=== PATIENT | male | born 1980 | race Hispanic/Latino ===

== ENCOUNTER 2017-04-01 20:22 | Emergency (ER) | payer SELFPAY ==
[2017-04-01 20:51] LABS: #Eosinphils 0.2 thou/uL (0.0-0.7); #Lymphocytes 3.3 thou/uL (1.20-3.40); #Monocytes 0.6 thou/uL (0.11-0.59); #Neutrophils 6.8 thou/uL (1.40-6.50); %Basophils 0.1 % (0.0-1.0); %Eosinophils 1.9 % (0.0-10.0); %Lymphocytes 30.3 % (21.0-51.0); %Monocytes 5.8 % (0.0-10.0); Hematocrit 45.8 % (42.0-52.0); Mean Platelet Volume 8.1 fL (7.4-10.4); Red Blood Cell (RBC) Count 5.12 mill/uL (4.70-6.10)
--- NOTE | 2017-04-01 21:10 | RAD ---
CHEST ONE VIEW 04/01/17 HISTORY: Hypertension. COMPARISON: None. FINDINGS: Portable upright chest: Normal cardiac silhouette. Lungs and pleural spaces are clear. No pneumothorax or osseous abnormality . IMPRESSION: No acute cardiopulmonary process. POS: [facility]
[2017-04-01 21:11] LABS: ALT (SGPT) 27 U/L (8-55); AST (SGOT) 23 U/L (5-34); Alkaline Phosphatase 143 U/L (40-150); Anion Gap 16 mmol/L (10-20); BUN (Urea Nitrogen) 16 mg/dL (8.9-20.6); CK (CPK) 114 U/L (30-200); Calc. Creatinine Clearance 0 mL/min (70-130); Calcium 9.5 mg/dL (7.8-10.44); Carbon Dioxide 24 mmol/L (22-29); Chloride 100 mmol/L (98-107); Estimated GFR-MDRD 67; Protein, Total 8.5 g/dL (6.0-8.3)
[2017-04-01 21:12] LABS: Troponin I Less than 0.010 ng/mL (< 0.028)
[2017-04-01] MEDS ORDERED: cloNIDine 0.1 MG TAB ONE (21:37)
[2017-04-01] MEDS ORDERED: Furosemide 20 MG/2 ML VIAL ONE (21:39)
== END 2017-04-01 23:04 | disposition home or self-care (01) ==
LOC: ERS 20:22
DX: I10 Essential (primary) hypertension (principal); M10.9 Gout, unspecified; Z87.891 Personal history of nicotine dependence
CPT/HCPCS: 71010; 80053; 82553; 84484; 85025; 93005; 94760; 96374; J1940

== ENCOUNTER 2018-08-29 23:42 | Observation (INO) | payer SELFPAY ==
[2018-08-30 00:30] LABS: #Eosinphils 0.1 thou/uL (0.0-0.7); #Lymphocytes 3.2 thou/uL (1.20-3.40); #Monocytes 0.6 thou/uL (0.11-0.59); #Neutrophils 5.8 thou/uL (1.40-6.50); %Basophils 0.3 % (0.0-1.0); %Eosinophils 1.5 % (0.0-10.0); %Lymphocytes 32.8 % (21.0-51.0); %Monocytes 6.1 % (0.0-10.0); %Neutrophils 59.4 % (42.0-75.0); Hemoglobin 12.1 g/dL (14.0-18.0); Mean Corpuscular HGB CONC 34.3 g/dL (32.0-36.0); Mean Corpuscular Hemoglobin 30.1 pg (27.0-31.0); Mean Corpuscular Volume 87.7 fL (78.0-98.0); Mean Platelet Volume 8.5 fL (7.4-10.4); Platelet Count 331 thou/uL (130-400); RBC Distribution Width 11.8 % (11.5-14.5); Red Blood Cell (RBC) Count 4.03 mill/uL (4.70-6.10); White Blood Cell (WBC) Count 9.7 thou/uL (4.8-10.8)
[2018-08-30 00:50] LABS: ALT (SGPT) 20 U/L (8-55); AST (SGOT) 14 U/L (5-34); Albumin 4.6 g/dL (3.5-5.0); Alkaline Phosphatase 109 U/L (40-150); Anion Gap 13 mmol/L (10-20); BUN (Urea Nitrogen) 49 mg/dL (8.9-20.6); Bilirubin, Total 0.5 mg/dL (0.2-1.2); Calc. Creatinine Clearance 0 mL/min (70-130); Carbon Dioxide 26 mmol/L (22-29); Chloride 102 mmol/L (98-107); Estimated GFR-MDRD 39; Globulin 3.5 g/dL (2.4-3.5); Glucose 110 mg/dL (70-105); Magnesium 2.2 mg/dL (1.6-2.6); Potassium 3.6 mmol/L (3.5-5.1); Protein, Total 8.1 g/dL (6.0-8.3); Sodium 137 mmol/L (136-145)
[2018-08-30 01:12] LABS: CKMB 1.1 ng/mL (0-6.6)
[2018-08-30] MEDS ORDERED: Aspirin Chewable 81 MG TAB ONE (02:44)
[2018-08-30 03:01] LABS: Troponin I 0.071 ng/mL (< 0.028)
[2018-08-30 04:07] LABS: Troponin I 0.074 ng/mL (< 0.028)
[2018-08-30 07:27] LABS: Troponin I 0.071 ng/mL (< 0.028)
--- NOTE | 2018-08-30 07:35 | RAD ---
Chest one view HISTORY: Chest pain. COMPARISON: 08/13/2018. FINDINGS: Cardiac silhouette is magnified by projection. Pulmonary vasculature within normal limits. Mediastinum is midline. No lobar consolidation or evidence of pneumothorax. quality assurance monitor chassis leads overlie the chest. IMPRESSION: No active cardiopulmonary abnormalities are demonstrated.
[2018-08-30] MEDS ORDERED: Carvedilol 3.125 MG TAB PO SCH (08:00)
[2018-08-30] MEDS ORDERED: metFORMIN XR 500 MG TAB PO SCH (08:00)
[2018-08-30] MEDS ORDERED: Clopidogrel Bisulfate 75 MG TAB PO SCH (09:00)
[2018-08-30] MEDS ORDERED: Aspirin Chewable 81 MG TAB PO SCH (09:00)
[2018-08-30] MEDS ORDERED: Losartan 25 MG TAB PO SCH (09:00)
[2018-08-30] MEDS ORDERED: Atorvastatin Calcium 10 MG TAB PO SCH (21:00)
--- NOTE | 2018-08-31 08:02 | SS ---
DATE OF ADMISSION: 08/30/2018 DATE OF DISCHARGE: 08/30/2018 ADMISSION DIAGNOSES: 1. Abdominal bloating. 2. Elevated cardiac enzymes. DISCHARGE DIAGNOSES: 1. Abdominal bloating, resolved. 2. Cardiac enzymes, stable. Other diagnoses; 1. Coronary artery disease, status post ST depression myocardial infarction, status post stent placement. 2. Type 2 diabetes. 3. Hyperlipidemia. 4. Acute kidney injury. CONSULTATIONS: None. PROCEDURES: Rule out DC protocol, IV fluid rehydration. HOSPITAL COURSE: This is a 38-year-old gentleman with a recent admission for myocardial infarction, status post bare metal stent placement to the right coronary artery for three-vessel coronary artery disease, who presented to the emergency department last night after being at the movie theater and developing abdominal bloating. The patient states that he was in his usual state of health, was recently seen and followed by myself and Cardiology. He has plans to follow up with Cardiovascular Surgery later this month when he develops abdominal bloating. The patient states that he took his medicine right before the movie, which he usually does not take at this time. He did not eat anything new. He denied nausea or vomiting, denied diarrhea, but felt gassy and was passing a lot of gas en route to the Emergency Department and in the Emergency Department. This helped improve his bloating. When he noticed the abdominal discomfort, he looked at his apple watch, revealed a heart rate in the 50s to 60s. He became panicked and he and his left the movie theater. In the panic, his heart rate got up to 120, which concerned him even more, and he went straight to the Emergency Department for evaluation. In the Emergency Department, he had no changes on his EKG, did note indeterminate level of troponin, but much lower than when he had his DC, initially 0.082, as well as worsening of his kidney function. Due to his sudden onset of his symptoms and the abnormality of his labs, he was admitted for overnight observation to trend his cardiac enzymes, to monitor his symptoms, and to give him IV fluid rehydration. Overnight, he improved significantly as his abdominal bloating resolved. His cardiac enzymes continued to decline with no significant change, and he felt much better and stable for discharge home. PAST MEDICAL HISTORY: Again, three-vessel coronary artery disease status post bare metal stent placement, type 2 diabetes, history of gout, hypertension, hyperlipidemia, obesity. MEDICATIONS: Include: 1. Aspirin 81 mg daily. 2. Atorvastatin 10 mg daily. 3. Carvedilol 3.125 mg b.i.d. 4. Plavix 75 mg daily. 5. Glucotrol 2.5 mg daily. 6. Hyzaar 100/25 daily. 7. Metformin 500 mg daily. PAST SURGICAL HISTORY: Cardiac catheterization with stent placement in 2019. FAMILY HISTORY: Father with hypertension. Mother with hyperlipidemia. REVIEW OF SYSTEMS: As per the history of present illness. CONSTITUTIONAL: He denies any recent fevers, chills, or recent illness. HEENT: Denies headache, visual, or hearing changes. CARDIAC: Denies chest pain, shortness of breath, or palpitations. PULMONARY: Denies cough or hemoptysis. GI: As per the history of present illness. No nausea, vomiting, diarrhea, melena, or hematochezia. : Denies dysuria or hematuria. NEUROLOGIC: Denies weakness, seizure, or syncope. PHYSICAL EXAMINATION: VITAL SIGNS: Temperature 99.0; pulse last night was up to 115, this morning is down to 85; respirations 16; blood pressure 126/97; pulse ox 100% on room air. GENERAL: He is awake and alert. No acute distress. Speech is clear. NECK: Supple. No JVD, adenopathy, or bruits. HEART: Regular rate and rhythm with no murmurs. LUNGS: Clear bilaterally. ABDOMEN: With positive bowel sounds. Soft, nontender, and nondistended. No hepatosplenomegaly. EXTREMITIES: No clubbing, cyanosis, or edema. 2+ peripheral pulses bilaterally. LABORATORY DATA: Sodium 137, potassium 3.6, chloride 102, CO2 of 26, BUN and creatinine 49 and 1.92, with a GFR of 39, serum glucose of 110, calcium of 10, magnesium 2.2. AST and ALT are normal. Troponin I 0.082, 0.071, 0.074, 0.071. TSH was slightly elevated at 6.4 with a T4 of 1.08. EKG revealed normal sinus rhythm with no acute ST-T changes. Chest x-ray showed no active disease. ASSESSMENT: This is a 38-year-old gentleman with type 2 diabetes, hypertension, hyperlipidemia, known three-vessel coronary artery disease status post stent placement, now status post episode of abdominal bloating followed by anxiety. No evidence of cardiac ischemia. No signs of myocardial infarction. PLAN: We will discharge home with close followup. Continue followup with Cardiovascular Surgery. DISCHARGE MEDICATIONS: Include: 1. Aspirin 81 mg daily. 2. Atorvastatin 10 mg daily. 3. Carvedilol 3.125 mg b.i.d. 4. Plavix 75 mg daily. 5. Glucotrol 2.5 mg daily. 6. Losartan 100 mg daily as we will discontinue the hydrochlorothiazide. 7. Metformin 500 mg daily. FOLLOWUP INSTRUCTIONS: He will keep his followups. Follow up with me in 2 to 3 weeks. Continue Cardiology and Cardiovascular Surgery followup as well as cardiac rehab. Job ID: [id number]
--- NOTE | 2018-09-11 13:33 | EKG ---
Test Reason : Blood Pressure : / mmHG Vent. Rate : 093 BPM Atrial Rate : 093 BPM P-R Int : 170 ms QRS Dur : 092 ms QT Int : 374 ms P-R-T Axes : 019 -04 015 degrees QTc Int : 465 ms Normal sinus rhythm Normal ECG Confirmed by TRACY ELLIS ([id number]), art editor MIKE SHAH ([id number]) on 09/11/2018 1:32:34 PM Referred By: Confirmed By:TRACY ELLIS
== END 2018-08-30 09:32 | disposition home or self-care (01) ==
LOC: ERS 23:42 → MERGE 08-30 03:15 → ERHOLD 08-30 03:15
PROVIDERS: ADMIT Family Medicine; ATTEND Family Medicine
DX: R14.0 Abdominal distension (gaseous) (principal); I25.10 Atherosclerotic heart disease of native coronary artery without angina pectoris; I25.2 Old myocardial infarction; E11.9 Type 2 diabetes mellitus without complications; E78.5 Hyperlipidemia, unspecified; N17.9 Acute kidney failure, unspecified; M10.9 Gout, unspecified; F41.9 Anxiety disorder, unspecified; Z87.891 Personal history of nicotine dependence; Z79.82 Long term (current) use of aspirin; Z79.02 Long term (current) use of antithrombotics/antiplatelets; Z79.84 Long term (current) use of oral hypoglycemic drugs; Z79.899 Other long term (current) drug therapy; Z95.5 Presence of coronary angioplasty implant and graft
CPT/HCPCS: 36415; 71045; 80053; 82553; 83735; 84439; 84443; 84484; 85025; 93005; 96360; 96361; G0378

== ENCOUNTER 2018-09-22 15:01 | Emergency (ER) | payer SELFPAY ==
[2018-09-22 15:57] LABS: #Eosinphils 0.2 thou/uL (0.0-0.7); #Lymphocytes 1.8 thou/uL (1.20-3.40); #Monocytes 0.5 thou/uL (0.11-0.59); %Basophils 0.1 % (0.0-1.0); %Eosinophils 1.9 % (0.0-10.0); %Lymphocytes 21.7 % (21.0-51.0); %Monocytes 5.9 % (0.0-10.0); %Neutrophils 70.5 % (42.0-75.0); Hemoglobin 12.2 g/dL (14.0-18.0); Mean Corpuscular HGB CONC 34.4 g/dL (32.0-36.0); Mean Corpuscular Hemoglobin 31.1 pg (27.0-31.0); Mean Corpuscular Volume 90.4 fL (78.0-98.0); Mean Platelet Volume 8.3 fL (7.4-10.4); Platelet Count 330 thou/uL (130-400); RBC Distribution Width 13.1 % (11.5-14.5); Red Blood Cell (RBC) Count 3.94 mill/uL (4.70-6.10); White Blood Cell (WBC) Count 8.5 thou/uL (4.8-10.8)
--- NOTE | 2018-09-22 15:59 | RAD ---
Exam: Chest one view HISTORY:Chest pain Comparison: 08/30/2018 FINDINGS: Cardiac silhouette: Normal Pulmonary vessels: Normal Costophrenic angles: Clear LUNGS: No masses or consolidation. Pneumothorax: None Osseous abnormalities: None IMPRESSION: No acute cardiopulmonary process.
[2018-09-22 16:18] LABS: ALT (SGPT) 25 U/L (8-55); AST (SGOT) 17 U/L (5-34); Albumin 4.7 g/dL (3.5-5.0); Alkaline Phosphatase 141 U/L (40-150); Anion Gap 15 mmol/L (10-20); BUN (Urea Nitrogen) 25 mg/dL (8.9-20.6); Bilirubin, Total 1.1 mg/dL (0.2-1.2); CK (CPK) 78 U/L (30-200); Calc. Creatinine Clearance 0 mL/min (70-130); Calcium 9.8 mg/dL (7.8-10.44); Carbon Dioxide 21 mmol/L (22-29); Chloride 104 mmol/L (98-107); Estimated GFR-MDRD 61; Globulin 2.9 g/dL (2.4-3.5); Glucose 158 mg/dL (70-105); Potassium 3.6 mmol/L (3.5-5.1); Protein, Total 7.6 g/dL (6.0-8.3); Sodium 136 mmol/L (136-145)
== END 2018-09-22 20:08 | disposition home or self-care (01) ==
LOC: ERS 15:01
DX: R07.9 Chest pain, unspecified (principal); I10 Essential (primary) hypertension; M10.9 Gout, unspecified; I25.2 Old myocardial infarction; E11.9 Type 2 diabetes mellitus without complications; E78.5 Hyperlipidemia, unspecified; Z87.891 Personal history of nicotine dependence; Z79.899 Other long term (current) drug therapy; Z79.84 Long term (current) use of oral hypoglycemic drugs
CPT/HCPCS: 36415; 71045; 80053; 82550; 83880; 84484; 85025; 85379; 93005

== ENCOUNTER 2019-07-12 20:58 | Emergency (ER) | payer SELFPAY ==
[2019-07-12] MEDS ORDERED: Ondansetron PF 4 MG/2 ML Vial ONE (21:47)
[2019-07-12] MEDS ORDERED: Meclizine HCl 25 MG TAB ONE (21:47)
[2019-07-12 21:57] LABS: #Eosinphils 0.2 thou/uL (0.0-0.7); #Lymphocytes 2.3 thou/uL (1.20-3.40); #Monocytes 0.7 thou/uL (0.11-0.59); #Neutrophils 8.7 thou/uL (1.40-6.50); %Basophils 0.4 % (0.0-1.0); %Eosinophils 1.6 % (0.0-10.0); %Lymphocytes 19.5 % (21.0-51.0); %Monocytes 5.5 % (0.0-10.0); %Neutrophils 73.1 % (42.0-75.0); Hemoglobin 12.4 g/dL (14.0-18.0); Mean Corpuscular HGB CONC 35.1 g/dL (32.0-36.0); Mean Corpuscular Hemoglobin 33.3 pg (27.0-31.0); Mean Corpuscular Volume 94.8 fL (78.0-98.0); Mean Platelet Volume 8.6 fL (7.4-10.4); Platelet Count 249 thou/uL (130-400); RBC Distribution Width 12.3 % (11.5-14.5); Red Blood Cell (RBC) Count 3.72 mill/uL (4.70-6.10); White Blood Cell (WBC) Count 11.9 thou/uL (4.8-10.8)
--- NOTE | 2019-07-12 21:57 | RAD ---
Portable chest: HISTORY: Syncope COMPARISON: 09/22/2018 FINDINGS: Lung dennis are clear. Heart and mediastinum appear unremarkable. Vascularity is normal. Visualized osseous structures unremarkable. IMPRESSION: No acute finding
[2019-07-12 22:16] LABS: ALT (SGPT) 29 U/L (8-55); AST (SGOT) 21 U/L (5-34); Albumin 4.5 g/dL (3.5-5.0); Alkaline Phosphatase 129 U/L (40-110); Anion Gap 14 mmol/L (10-20); BUN (Urea Nitrogen) 29 mg/dL (8.9-20.6); Bilirubin, Total 0.8 mg/dL (0.2-1.2); Calc. Creatinine Clearance 0 mL/min (70-130); Calcium 9.1 mg/dL (7.8-10.44); Carbon Dioxide 24 mmol/L (22-29); Chloride 105 mmol/L (98-107); Estimated GFR-MDRD 65; Globulin 2.7 g/dL (2.4-3.5); Glucose 125 mg/dL (70-105); Potassium 3.7 mmol/L (3.5-5.1); Protein, Total 7.2 g/dL (6.0-8.3); Sodium 139 mmol/L (136-145)
== END 2019-07-12 23:46 | disposition home or self-care (01) ==
LOC: ERS 20:58
DX: R42 Dizziness and giddiness (principal); M10.9 Gout, unspecified; E11.9 Type 2 diabetes mellitus without complications; I10 Essential (primary) hypertension; E78.5 Hyperlipidemia, unspecified; I25.2 Old myocardial infarction; Z87.891 Personal history of nicotine dependence; Z79.891 Long term (current) use of opiate analgesic; Z79.82 Long term (current) use of aspirin; Z79.84 Long term (current) use of oral hypoglycemic drugs
CPT/HCPCS: 36415; 71045; 80053; 84484; 85025; 93005; 96374; J2405; J8597

== ENCOUNTER 2020-01-27 11:39 | Observation (INO) | payer OTHER, SELFPAY ==
--- NOTE | 2020-01-27 11:58 | RAD ---
EXAM: Single view of the chest HISTORY: Chest pain COMPARISON: 07/12/2019 FINDINGS: Single view of the chest shows a normal sized cardiomediastinal silhouette. There is no michael dence of consolidation, mass, or pleural effusion. No acute osseous abnormality. IMPRESSION: No evidence of acute cardiopulmonary disease
[2020-01-27 13:02] LABS: #Lymphocytes 1.7 thou/uL (1.20-3.40); #Monocytes 0.5 thou/uL (0.11-0.59); #Neutrophils 5.8 thou/uL (1.40-6.50); %Basophils 0.3 % (0.0-1.0); %Eosinophils 0.1 % (0.0-10.0); %Lymphocytes 21.3 % (21.0-51.0); %Monocytes 5.7 % (0.0-10.0); %Neutrophils 72.7 % (42.0-75.0); Hemoglobin 14.5 g/dL (14.0-18.0); Mean Corpuscular HGB CONC 34.9 g/dL (32.0-36.0); Mean Corpuscular Hemoglobin 32.5 pg (27.0-31.0); Mean Corpuscular Volume 93.1 fL (78.0-98.0); Mean Platelet Volume 10.2 fL (7.4-10.4); Platelet Count 268 thou/uL (130-400); RBC Distribution Width 12.1 % (11.5-14.5); Red Blood Cell (RBC) Count 4.46 mill/uL (4.70-6.10)
[2020-01-27 13:33] LABS: ALT (SGPT) 24 U/L (8-55); AST (SGOT) 37 U/L (5-34); Albumin 4.8 g/dL (3.5-5.0); Alkaline Phosphatase 145 U/L (40-110); Anion Gap 15 mmol/L (10-20); BUN (Urea Nitrogen) 28 mg/dL (8.9-20.6); Bilirubin, Total 0.7 mg/dL (0.2-1.2); Calc. Creatinine Clearance 0 mL/min (70-130); Calcium 9.5 mg/dL (7.8-10.44); Carbon Dioxide 23 mmol/L (22-29); Chloride 104 mmol/L (98-107); Estimated GFR-MDRD 61; Globulin 3.8 g/dL (2.4-3.5); Glucose 105 mg/dL (70-105); Potassium 5.2 mmol/L (3.5-5.1); Protein, Total 8.6 g/dL (6.0-8.3); Sodium 137 mmol/L (136-145)
[2020-01-27] MEDS ORDERED: Aspirin Chewable 81 MG TAB ONE (16:07)
[2020-01-27 16:58] LABS: Troponin I Less than 0.010 ng/mL (< 0.028)
[2020-01-27 18:11] VITALS: BMI 29.6
[2020-01-27 19:14] LABS: Troponin I Less than 0.010 ng/mL (< 0.028)
[2020-01-27] MEDS ORDERED: Ondansetron ODT 4 MG TAB SL PRN (19:15)
[2020-01-27] MEDS ORDERED: Ondansetron PF 4 MG/2 ML Vial IVP PRN (19:15)
[2020-01-27] MEDS ORDERED: Acetaminophen 325 MG TAB PO PRN (19:15)
--- NOTE | 2020-01-27 20:41 | PDOC.HHP ---
Hospitalist HPI - History of Present Illness chest pressure History of Present Illness: This is a 39 year old male with past medical history of CAD who presented to the ER with some chest pressure that started at 11:30 this morning. He was sitting down when the pain happened. He stated it was not sharp, non-radiating, not associated with shortness of breath, diaphoresis, palpitations, lightheadedness or dizziness. He denied chest pressure on exertion. When he checked his blood pressure it was 160/100. He rechecked it and it improved to 139/86 but after five more minutes it increased to 160/100 so he came to the emergency room. The patient states that after his EKG was done and he was told it was normal, his chest pressure resolved. The patient has a history of CAD with two stents placed last year. He states that time he experienced an intense pain in his throat and his shoulders were aching. His heart rate was low and an EKG at his PCP's office was abnormal and he was sent to the ER and found to have CAD. He does not smoke currently, and was never a heavy smoker (only when he drank alcohol). He denies family history of heart disease. He denies fevers, chills, cough ED Course: The patient presented to the ER with a blood pressure of 171/108. Chest Xray was normal. EKG showed normal sinus rhythm. He was given aspirin in the ER. Hospitalist ROS - Review of Systems Constitutional: denies: fever, chills Eyes: denies: pain, vision change Respiratory: denies: cough, shortness of breath Cardiovascular: denies: chest pain, palpitations, orthopnea Gastrointestinal: denies: nausea, vomiting, abdominal pain Musculoskeletal: denies: neck pain, shoulder pain, arm pain Skin: denies: rash, lesions Hospitalist History - Past Medical History Other Medical History: CAD Hypertension - Past Surgical History Other Surgical History: Stent placement - Family History Other Family History: No problems in the family - Social History Smoking Status: Former smoker (smoked occasionally once a week with alcohol. Quit 2 years ago) Alcohol: reports: None (stopped alcohol two years ago. Used to drink once a week) - Exam General Appearance: NAD, awake alert Eye: PERRL, anicteric sclera ENT: normocephalic atraumatic, no oropharyngeal lesions Neck: no JVD Heart: RRR, no murmur, no gallops, no rubs Respiratory: CTAB, no wheezes, no rales, no ronchi Gastrointestinal: soft, non-tender, non-distended, normal bowel sounds Extremities: no cyanosis, no clubbing, no edema Skin: normal turgor, no lesions, no rashes Neurological: cranial nerve grossly intact, normal sensation to touch, no focal deficits, no new deficit Musculoskeletal: normal tone, normal strength, no muscle wasting Psychiatric: normal affect, normal behavior, A&O x 3, oriented to person Hospitalist Results - Labs Result Diagrams: 01/27/20 12:39 01/27/20 12:39 Lab results: WBC 8.0 thou/uL (4.8-10.8) 01/27/20 12:39 Hgb 14.5 g/dL (14.0-18.0) 01/27/20 12:39 Hct 41.5 % (42.0-52.0) L 01/27/20 12:39 MCV 93.1 fL (78.0-98.0) 01/27/20 12:39 Plt Count 268 thou/uL (130-400) 01/27/20 12:39 Neutrophils % 72.7 % (42.0-75.0) 01/27/20 12:39 Sodium 137 mmol/L (136-145) 01/27/20 12:39 Potassium 5.2 mmol/L (3.5-5.1) H 01/27/20 12:39 Chloride 104 mmol/L (98-107) 01/27/20 12:39 Carbon Dioxide 23 mmol/L (22-29) 01/27/20 12:39 BUN 28 mg/dL (8.9-20.6) H 01/27/20 12:39 Creatinine 1.31 mg/dL (0.7-1.3) H 01/27/20 12:39 Glucose 105 mg/dL (70-105) 01/27/20 12:39 Calcium 9.5 mg/dL (7.8-10.44) 01/27/20 12:39 Total Bilirubin 0.7 mg/dL (0.2-1.2) 01/27/20 12:39 AST 37 U/L (5-34) H 01/27/20 12:39 ALT 24 U/L (8-55) 01/27/20 12:39 Alkaline Phosphatase 145 U/L (40-110) H 01/27/20 12:39 Troponin I Less than 0.010 ng/mL (< 0.028) 01/27/20 18:39 Serum Total Protein 8.6 g/dL (6.0-8.3) H 01/27/20 12:39 Albumin 4.8 g/dL (3.5-5.0) 01/27/20 12:39 Hospitalist H&P A/P - Plan Plan: This is a 39 year old male who presented to the ER with chest pressure, was found to have hypertensive urgency Chest pressure - likely secondary to hypertensive urgency vs anxiety - troponin negative times three. Continue aspirin, statin - will monitor on telemetry - check stress test in am - follows with Dr. Tejada as an outpatient Hypertension - resume home coreg 3.125 mg bid, titrate as tolerated Hyperkalemia - potassium 5.2, will give kayexelate and recheck after bowel movement CAD -continue aspirin, statin Gout - continue allopurinol DVT prophylaxis: SCD Code status: full code
[2020-01-27] MEDS: Aspirin Chewable 81 MG TAB PO SCH (22:01)
[2020-01-27] MEDS: Atorvastatin Calcium 10 MG TAB PO SCH (22:01)
[2020-01-27] MEDS: Allopurinol 300 MG TAB PO SCH (22:01)
[2020-01-27 22:40] LABS: Potassium 3.6 mmol/L (3.5-5.1)
[2020-01-28 05:37] LABS: Anion Gap 14 mmol/L (10-20); BUN (Urea Nitrogen) 25 mg/dL (8.9-20.6); Calc. Creatinine Clearance 118 mL/min (70-130); Calcium 8.9 mg/dL (7.8-10.44); Carbon Dioxide 24 mmol/L (22-29); Cardiac Risk 3.1 (Less than 4.5); Chloride 106 mmol/L (98-107); Cholesterol 110 mg/dl (< 200 Desired); Estimated GFR-MDRD 82; Glucose 92 mg/dL (70-105); HDL Cholesterol 36 mg/dL (>60 Neg Risk); LDL Cholesterol, Calculated 55 mg/dL; Potassium 3.5 mmol/L (3.5-5.1); Sodium 140 mmol/L (136-145); Triglycerides 93 mg/dL (Less than 150)
[2020-01-28 12:09] LABS: SARS-CoV-2 MS2 Positive; SARS-CoV-2 N Gene Negative; SARS-CoV-2 S Gene Negative; SARS-CoV-2 by NAA Not Detected (NotDetected); SARS-CoV-2 orf1ab Negative
[2020-01-28] MEDS: Carvedilol 3.125 MG TAB PO SCH ×2 (13:50→18:12)
--- NOTE | 2020-01-28 15:56 | NM ---
MYOCARDIAL PERFUSION SCAN WITH SPECT IMAGIN01/28/20 HISTORY: Chest pain. Examination is performed using 30 millicuries of 99m technetium Sestamibi on the stress and 9.1 valerio curies on the resting images. This shows a defect in the inferior and inferolateral costa extending into the apex. On the resting i mages, there appears to be some improved perfusion to the apical region suggesting some ischemic flores ge in this region. Wall motion: There is symmetric contractility to the ventricle. Left ventricular ejection fraction: Calculated left ventricular ejection fraction is 49%. IMPRESSION: Inferior and inferolateral wall scar with some ischemic change in the apex o the heart. POS: OFF
[2020-01-28] MEDS ORDERED: Nitroglycerin 0.4 MG TAB (25 Tab Bottle) SL PRN (16:00)
--- NOTE | 2020-01-28 16:06 | PDOC.HOSPP ---
- Subjective Encounter Date: 01/28/20 Encounter Time: 11:04 Subjective: Patient states he feels well and is without any complaints. Denies any chest pain at all and states what brought him in was his blood pressure which was fluctuating at home. He reports "feeling weird all day yesterday" which is what prompted him to check his blood pressure. Denies any sob. States his symptoms resolved and he feels back to his normal baseline. - Objective Vital Signs & Weight: Vital Signs (12 hours) Temp Pulse Resp BP Pulse Ox 01/28/20 13:50 98 F 81 20 150/91 H 99 01/28/20 07:46 97.7 F 71 20 130/78 97 Weight Weight 189 lb 6.4 oz I&O: 01/27/20 01/28/20 01/29/20 06:59 06:59 06:59 Intake Total 750 360 Balance 750 360 Result Diagrams: 01/27/20 12:39 01/28/20 04:37 Hospitalist ROS - Review of Systems Constitutional: denies: fever, chills, sweats, weakness, malaise, other Eyes: denies: pain, vision change, conjunctivae inflammation, eyelid inflammation, redness, other Cardiovascular: denies: chest pain, palpitations, orthopnea, paroxysmal noc. dyspnea, edema, light headedness, other Gastrointestinal: denies: nausea, vomiting, abdominal pain, diarrhea, constipation, melena, hematochezia, other Genitourinary: denies: dysuria, frequency, incontinence, hematuria, retention, other Neurological: denies: weakness, numbness, incoordination, change in speech, confusion, seizures, other - Medication Medications: Active Medications Generic Name Dose Route Start Last Admin Trade Name Freq PRN Reason Stop Dose Admin Allopurinol 300 mg 01/27/20 21:00 01/27/20 22:01 Allopurinol 300 Mg Tab PO 300 mg HS AMG Administration Aspirin 81 mg 01/27/20 21:00 01/27/20 22:01 Aspirin Chewable 81 Mg Tab PO 81 mg HS MAG Administration Atorvastatin Calcium 10 mg 01/27/20 21:00 01/27/20 22:01 Atorvastatin Calcium 10 Mg Tab PO 10 mg HS MAG Administration Carvedilol 3.125 mg 01/28/20 08:00 01/28/20 13:50 Carvedilol 3.125 Mg Tab PO 3.125 mg BID-WM MAG Administration - Exam General Appearance: NAD, awake alert Eye: PERRL, anicteric sclera ENT: normocephalic atraumatic, no oropharyngeal lesions Neck: supple, symmetric, no lymphadenopathy Heart: RRR, no murmur, no gallops, normal peripheral pulses Respiratory: CTAB, no wheezes, no rales, no ronchi, normal chest expansion, no tachypnea Gastrointestinal: soft, non-tender, non-distended, normal bowel sounds, no guarding, no rigidity Extremities: no edema Skin: normal turgor, no lesions, no rashes Neurological: cranial nerve grossly intact, normal sensation to touch, no weakness, no focal deficits Musculoskeletal: normal tone, normal strength, no muscle wasting Psychiatric: normal affect, normal behavior, A&O x 3 Hosp A/P (1) Chest pressure Code(s): R07.89 - OTHER CHEST PAIN Status: Acute Plan: Troponins trended and unremarkable. Stress test pending. Continue cardiac monitoring. (2) Hypertension Code(s): I10 - ESSENTIAL (PRIMARY) HYPERTENSION Status: Chronic Plan: Monitor BP. Home medications re-started. (3) Hyperkalemia Code(s): E87.5 - HYPERKALEMIA Status: Resolved Plan: Improved with kayexelate. Continue to monitor electrolytes. (4) CAD (coronary artery disease) Code(s): I25.10 - ATHSCL HEART DISEASE OF [place] CORONARY ARTERY W/O ANG PCTRS Status: Chronic Plan: Continue aspirin and statin. (5) History of coronary artery stent placement Code(s): Z95.5 - PRESENCE OF CORONARY ANGIOPLASTY IMPLANT AND GRAFT Status: Chronic (6) Gout Code(s): M10.9 - GOUT, UNSPECIFIED Status: Chronic Plan: Continue allopurinol - Plan old records reviewed/req, out of bed/ambulate ADDENDUM: Stress test has come back abnormal. Inferior and inferolateral wall scar with some ischemic change in the apex noted. Consult placed to Cardiology, for possible catherization. Unlikely to be done until Thursday. Would need to be NPO starting midnight Thursday. Awaiting cardiology review/recommendations.
[2020-01-28] MEDS: Aspirin Chewable 81 MG TAB PO SCH (20:32)
[2020-01-28] MEDS: Allopurinol 300 MG TAB PO SCH (20:32)
[2020-01-28] MEDS: Atorvastatin Calcium 10 MG TAB PO SCH (20:32)
[2020-01-29 05:34] LABS: #Lymphocytes 2.3 thou/uL (1.20-3.40); #Monocytes 0.6 thou/uL (0.11-0.59); #Neutrophils 6.1 thou/uL (1.40-6.50); %Basophils 0.4 % (0.0-1.0); %Eosinophils 0.2 % (0.0-10.0); %Lymphocytes 25.2 % (21.0-51.0); %Monocytes 6.5 % (0.0-10.0); %Neutrophils 67.7 % (42.0-75.0); Hemoglobin 13.2 g/dL (14.0-18.0); Mean Corpuscular HGB CONC 35.7 g/dL (32.0-36.0); Mean Corpuscular Hemoglobin 33.5 pg (27.0-31.0); Mean Corpuscular Volume 93.9 fL (78.0-98.0); Mean Platelet Volume 8.9 fL (7.4-10.4); Platelet Count 232 thou/uL (130-400); Red Blood Cell (RBC) Count 3.92 mill/uL (4.70-6.10)
[2020-01-29 05:56] LABS: Anion Gap 12 mmol/L (10-20); BUN (Urea Nitrogen) 21 mg/dL (8.9-20.6); Calc. Creatinine Clearance 107 mL/min (70-130); Carbon Dioxide 27 mmol/L (22-29); Chloride 105 mmol/L (98-107); Estimated GFR-MDRD 73; Glucose 125 mg/dL (70-105); Potassium 3.4 mmol/L (3.5-5.1); Sodium 141 mmol/L (136-145)
[2020-01-29] MEDS: Carvedilol 3.125 MG TAB PO SCH ×2 (07:53→18:00)
[2020-01-29 13:42] VITALS: BP 149/93; TEMP 97.9
--- NOTE | 2020-01-29 13:59 | CON ---
DATE OF CONSULTATION: REASON FOR CONSULTATION: Hypertensive urgency and atypical chest pain. HISTORY OF PRESENT ILLNESS: Mr. Ott is a 39-year-old gentleman, who is a patient Dr. Fareed Tejada. He has a previous history of PA. He re-presented with hypertension. His blood pressure in the 170s. He states he felt off. No chest pain or pressure noted. No other symptoms noted. He presented to the emergency room with the above. EKG was within normal limits. The patient denied chest pain, pressure, or other associated symptoms. Reason for recent stress study is unknown. PAST MEDICAL HISTORY: diabetes mellitus, and hypertension. SOCIAL HISTORY: No current tobacco or alcohol use. Previous tobacco use. CURRENT HOME MEDICATIONS: Include; 1. Allopurinol. 2. Indomethacin. 3. Lipitor. 4. Aspirin. 5. Carvedilol. PHYSICAL EXAMINATION: GENERAL: The patient is a pleasant male, who is in no acute distress. The patient appears their stated age. VITAL SIGNS: Blood pressure 153/88, pulse 79, and temperature 98.3. NEUROLOGIC: The patient is alert and oriented x3 with no focal neurologic deficits. HEENT: Sclerae without icterus. Mouth has moist mucous membranes with normal pallor. NECK: No JVD. Carotid upstroke brisk. No bruits bilaterally. LUNGS: Clear to auscultation with unlabored respirations. BACK: No scoliosis or kyphosis. CARDIAC: Regular rate and rhythm with normal S1 and S2. No S3 or S4 noted. No significant rubs, murmurs, thrills, or gallops noted throughout the precordium. PMI is not displaced. There is no parasternal heave. ABDOMEN: Soft, nontender, nondistended. No peritoneal signs present. No hepatosplenomegaly. No abnormal striae. EXTREMITIES: 2+ femoral and 2+ dorsalis pedis pulses. No cyanosis, clubbing, or edema. SKIN: No gross abnormalities. PERTINENT LABORATORY DATA: CK troponin negative. Hemoglobin 13.2. Stress test with myocardial perfusion study, LVEF 49%. Scar noted to the inferior wall with apex. IMPRESSION: 1. Hypertension. 2. Abnormal stress study. 3. Coronary artery disease. 4. Status post myocardial infarction. RECOMMENDATIONS: Mr. Ott had no symptoms suggesting angina. He previously had an PA with successful stent placed to the right coronary artery. I reviewed the angiogram. He also had severe stenosis present to a circumflex artery that has been treated medically. Given no current symptoms, certainly appears appropriate. At this point, we will continue statin, aspirin in addition to beta-mara therapy. Okay for discharge from my standpoint with outpatient followup with Dr. Fareed Tejada and his primary care provider, Dr. Addison. Job ID: [id number]
--- NOTE | 2020-01-30 07:41 | DIS ---
DATE OF ADMISSION: 01/27/2020 DATE OF DISCHARGE: 01/29/2020 DISCHARGE DIAGNOSES: 1. Coronary artery disease, presented with angina. 2. Hypertension. 3. Hyperkalemia. 4. Coronary artery disease, status post stent placement. 5. Gout. MEDICATIONS: There is no change in his previous home medications. PERTINENT LAB FINDINGS: LDL 55. Troponin x2 negative. CONSULTS: Cardiology consult with Dr. Padron. HOSPITAL COURSE: This is a 39-year-old male presented with chest pain. He has undergone a stress test, which is abnormal. Cardiology evaluated him. The patient does have severe stenosis in the circumflex artery that is being treated medically. He has a previous stent placed to the right coronary artery. Currently after the abnormal stress test, he did not have any anginal symptoms. For abnormal stress test, medical management for now and follow up with Dr. Tejada in 1 to 2 weeks. The patient is clinically stable to be discharged home today. DISCHARGE INSTRUCTIONS: Activity as tolerated. Healthy heart diet. Follow up with Dr. Tejada in 1 to 2 weeks. Discharge time took over 35 minutes. Job ID: [id number] [facility]
== END 2020-01-29 17:30 | disposition home or self-care (01) ==
LOC: ERS 11:39 → 2SW 17:00
PROVIDERS: ADMIT Internal Medicine; ATTEND Internal Medicine
DX: I25.119 Atherosclerotic heart disease of native coronary artery with unspecified angina pectoris (principal); I16.0 Hypertensive urgency; I10 Essential (primary) hypertension; E87.5 Hyperkalemia; I25.10 Atherosclerotic heart disease of native coronary artery without angina pectoris; M10.9 Gout, unspecified; E11.9 Type 2 diabetes mellitus without complications; I25.2 Old myocardial infarction; Z87.891 Personal history of nicotine dependence; Z79.82 Long term (current) use of aspirin; Z79.84 Long term (current) use of oral hypoglycemic drugs; Z79.899 Other long term (current) drug therapy; Z95.5 Presence of coronary angioplasty implant and graft; Z20.828 Contact with and (suspected) exposure to other viral communicable diseases
CPT/HCPCS: 36415; 71045; 78452; 80048; 80053; 80061; 83735; 84484; 85025; 87635; 93005; 93017; A9500; G0378; U0003

== ENCOUNTER 2023-05-31 23:11 | Inpatient (IN) | payer OTHER, SELFPAY ==
[2023-05-31 23:47] LABS: #Eosinphils 0.1 thou/uL (0.0-0.7); #Monocytes 0.5 thou/uL (0.11-0.59); #Neutrophils 7.2 thou/uL (1.40-6.50); %Basophils 0.3 % (0.0-1.0); %Eosinophils 1.1 % (0.0-10.0); %Monocytes 5.2 % (0.0-10.0); Hematocrit 40.6 % (42.0-52.0); Hemoglobin 14.1 g/dL (14.0-18.0); Mean Corpuscular HGB CONC 34.7 g/dL (32.0-36.0); Mean Corpuscular Hemoglobin 30.6 pg (27.0-31.0); Mean Corpuscular Volume 88.1 fl (78.0-98.0); Mean Platelet Volume 11.7 fL (7.4-10.4); Platelet Count 223 10x3/uL (130-400); RBC Distribution Width 12.9 % (11.5-14.5); Red Blood Cell (RBC) Count 4.61 mill/uL (4.70-6.10); White Blood Cell (WBC) Count 9.9 10x3/uL (4.8-10.8)
[2023-06-01 00:11] LABS: ALT (SGPT) 24 U/L (8-55); AST (SGOT) 45 U/L (5-34); Albumin 4.3 g/dL (3.5-5.0); Alkaline Phosphatase 105 U/L (40-110); Anion Gap 13 mmol/L (10-20); BUN (Urea Nitrogen) 25 mg/dL (8.9-20.6); Bilirubin, Total 0.7 mg/dL (0.2-1.2); Calc. Creatinine Clearance 0 mL/min (70-130); Calcium 8.9 mg/dL (7.8-10.44); Carbon Dioxide 23 mmol/L (22-29); Chloride 105 mmol/L (98-107); Estimated GFR 50; Globulin 3.1 g/dL (2.4-3.5); Glucose 211 mg/dL (70-105); Magnesium 1.9 mg/dL (1.6-2.6); Protein, Total 7.4 g/dL (6.0-8.3); Sodium 137 mmol/L (136-145)
[2023-06-01 00:19] LABS: Critical Call Chem Troponin I NUR.SS14 @0018; Troponin I 2.453 ng/mL (< 0.028)
[2023-06-01] MEDS ORDERED: predniSONE 20 MG TAB ONE (00:26)
[2023-06-01] MEDS ORDERED: Morphine 4 MG/ML VIAL ONE (00:26)
[2023-06-01] MEDS ORDERED: Ondansetron PF 4 MG/2 ML Vial ONE (00:26)
[2023-06-01] MEDS ORDERED: Enoxaparin 100 MG (1 mL) SYRINGE ONE (00:26)
[2023-06-01] MEDS ORDERED: Aspirin Chewable 81 MG TAB ONE (00:42)
[2023-06-01] MEDS ORDERED: Ondansetron ODT 4 MG TAB SL PRN (02:15)
[2023-06-01] MEDS ORDERED: Morphine 4 MG/ML VIAL SLOW IVP PRN (02:15)
[2023-06-01] MEDS ORDERED: Ondansetron PF 4 MG/2 ML Vial IVP PRN ×2 (02:15→03:13)
[2023-06-01] MEDS ORDERED: Ondansetron ODT 4 MG TAB PO PRN (03:13)
[2023-06-01] MEDS ORDERED: Acetaminophen 650 MG Suppository PR PRN (03:13)
[2023-06-01] MEDS ORDERED: Glucagon 1 MG/ML KIT IM PRN (03:13)
[2023-06-01] MEDS ORDERED: Nitroglycerin 0.4 MG TAB (25 Tab Bottle) SL PRN (03:13)
[2023-06-01] MEDS ORDERED: Dextrose 50% Abboject 50 ML SYRINGE SLOW IVP PRN (03:13)
[2023-06-01] MEDS ORDERED: Dextrose 5% in Water 1,000 ML IV PRN (03:13)
[2023-06-01] MEDS ORDERED: HumaLOG 300 UNITS/3 ML VIAL SC PRN (03:13)
[2023-06-01 03:32] LABS: #Eosinphils 0.1 thou/uL (0.0-0.7); #Monocytes 0.6 thou/uL (0.11-0.59); #Neutrophils 8.1 thou/uL (1.40-6.50); %Basophils 0.2 % (0.0-1.0); %Eosinophils 0.8 % (0.0-10.0); %Lymphocytes 13.1 % (21.0-51.0); %Monocytes 5.5 % (0.0-10.0); Hematocrit 35.3 % (42.0-52.0); Hemoglobin 12.4 g/dL (14.0-18.0); Mean Corpuscular HGB CONC 35.1 g/dL (32.0-36.0); Mean Corpuscular Hemoglobin 30.8 pg (27.0-31.0); Mean Corpuscular Volume 87.8 fl (78.0-98.0); Mean Platelet Volume 11.5 fL (7.4-10.4); Platelet Count 198 10x3/uL (130-400); Red Blood Cell (RBC) Count 4.02 mill/uL (4.70-6.10); White Blood Cell (WBC) Count 10.2 10x3/uL (4.8-10.8)
[2023-06-01 03:45] LABS: Hemoglobin A1c 6.2 % (4.0-6.0)
[2023-06-01 03:52] LABS: Anion Gap 14 mmol/L (10-20); BUN (Urea Nitrogen) 25 mg/dL (8.9-20.6); Calc. Creatinine Clearance 0 mL/min (70-130); Calcium 8.4 mg/dL (7.8-10.44); Carbon Dioxide 18 mmol/L (22-29); Cardiac Risk 4.5 (Less than 4.5); Chloride 109 mmol/L (98-107); Cholesterol 143 mg/dl (< 200 Desired); Estimated GFR 69; Glucose 151 mg/dL (70-105); HDL Cholesterol 32 mg/dL (>60 Neg Risk); LDL Cholesterol, Calculated 84 mg/dL; Potassium 3.6 mmol/L (3.5-5.1); Sodium 137 mmol/L (136-145); Triglycerides 134 mg/dL (Less than 150)
[2023-06-01 04:02] VITALS: BMI 29.3
[2023-06-01 04:06] LABS: Critical Call Chem Troponin I NUR.CG9 @0405
[2023-06-01 04:11] LABS: Free T4 (Free Thyroxine) 1.12 ng/dL (0.70-1.48); Thyroid Stimulating Hormone 5.0836 uIU/mL (0.35-4.94)
[2023-06-01 05:29] LABS: SARS-CoV-2 NAA Rapid Test Not Detected (NotDetected)
[2023-06-01] MEDS: Sodium Chloride 0.9% 1,000 ML IV SCH (05:57)
[2023-06-01 06:28] LABS: Amphetamine Not Detected (NotDetected); Barbiturates Screen Not Detected (NotDetected); Benzodiazepine Screen Not Detected (NotDetected); Cocaine Metabolite Screen Not Detected (NotDetected); Methadone Not Detected (NotDetected); Methamphetamine Not Detected (NotDetected); Opiate Screen Detected (NotDetected); Oxycodone Screen Not Detected (NotDetected); Phencyclidine (PCP) Not Detected (NotDetected); THC/Cannabinoid Screen Not Detected (NotDetected); Tricyclic Screen Not Detected (NotDetected)
[2023-06-01] MEDS: Communication Order-Pharmacy FS ONE (06:41)
[2023-06-01] MEDS: predniSONE 20 MG TAB PO SCH (06:41)
[2023-06-01 07:14] LABS: Troponin I 9.125 ng/mL (< 0.028)
[2023-06-01] MEDS: Furosemide 40 MG (4 mL) VIAL SLOW IVP SCH ×2 (08:50→14:36)
[2023-06-01] MEDS: Famotidine 20 MG TAB PO SCH (08:50)
[2023-06-01] MEDS: Aspirin 81 mg Enteric Coated Tablet PO SCH (08:50)
[2023-06-01] MEDS ORDERED: Enoxaparin 100 MG (1 mL) SYRINGE SC SCH (09:00)
[2023-06-01] MEDS: Enoxaparin 100 MG (1 mL) SYRINGE SC SCH (12:07)
[2023-06-01] MEDS: Acetaminophen 325 MG TAB PO PRN (14:49)
[2023-06-01] MEDS: HumaLOG 300 UNITS/3 ML VIAL SC PRN (16:30)
[2023-06-01] MEDS: Carvedilol 3.125 MG TAB PO SCH (16:30)
[2023-06-01] MEDS: Atorvastatin Calcium 40 MG TAB PO SCH (21:42)
[2023-06-02 05:50] LABS: #Eosinphils 0.1 thou/uL (0.0-0.7); #Monocytes 0.7 thou/uL (0.11-0.59); %Basophils 0.2 % (0.0-1.0); %Eosinophils 0.5 % (0.0-10.0); %Lymphocytes 19.3 % (21.0-51.0); %Monocytes 7.6 % (0.0-10.0); %Neutrophils 71.9 % (42.0-75.0); Hematocrit 36.5 % (42.0-52.0); Hemoglobin 12.3 g/dL (14.0-18.0); Mean Corpuscular HGB CONC 33.7 g/dL (32.0-36.0); Mean Corpuscular Hemoglobin 30.6 pg (27.0-31.0); Mean Corpuscular Volume 90.8 fl (78.0-98.0); Mean Platelet Volume 12.2 fL (7.4-10.4); Platelet Count 241 10x3/uL (130-400); RBC Distribution Width 13.1 % (11.5-14.5); Red Blood Cell (RBC) Count 4.02 mill/uL (4.70-6.10); White Blood Cell (WBC) Count 9.7 10x3/uL (4.8-10.8)
[2023-06-02] MEDS ORDERED: Communication Order-Pharmacy FS SCH (06:00)
[2023-06-02] MEDS: Sodium Chloride 0.9% 1,000 ML IV SCH ×2 (06:10→08:20)
[2023-06-02 06:17] LABS: Anion Gap 13 mmol/L (10-20); BUN (Urea Nitrogen) 30 mg/dL (8.9-20.6); Calc. Creatinine Clearance 80 mL/min (70-130); Calcium 8.8 mg/dL (7.8-10.44); Carbon Dioxide 24 mmol/L (22-29); Chloride 106 mmol/L (98-107); Estimated GFR 57; Glucose 152 mg/dL (70-105); Potassium 3.5 mmol/L (3.5-5.1); Sodium 139 mmol/L (136-145)
[2023-06-02] MEDS ORDERED: Heparin 10,000 UNITS/ 10 ML VIAL ONE (06:20)
[2023-06-02] MEDS ORDERED: fentaNYL 50 mcg/mL 1 mL Vial ONE (07:03)
[2023-06-02] MEDS ORDERED: Midazolam HCl 2 mg/2 ml Vial ONE (07:04)
[2023-06-02] MEDS ORDERED: Protamine Sulfate 50 MG/5 ML VIAL ONE (07:29)
[2023-06-02] MEDS ORDERED: Sodium Chloride 0.9% 200 ML IV PRN (07:53)
[2023-06-02] MEDS ORDERED: Acetaminophen/Codeine 30-300mg Tablet PO PRN ×2 (07:53)
[2023-06-02] MEDS ORDERED: Nitroglycerin 0.4 MG TAB (25 Tab Bottle) SL PRN (07:53)
[2023-06-02] MEDS: Empagliflozin 10 MG TAB PO SCH (10:38)
[2023-06-02] MEDS ORDERED: Iopamidol 370 76% 100 ML VIAL ONE (10:57)
[2023-06-02] MEDS: HumaLOG 300 UNITS/3 ML VIAL SC PRN (18:02)
[2023-06-03 04:54] LABS: #Monocytes 0.6 thou/uL (0.11-0.59); #Neutrophils 6.1 thou/uL (1.40-6.50); %Basophils 0.5 % (0.0-1.0); %Eosinophils 0.5 % (0.0-10.0); %Lymphocytes 22.5 % (21.0-51.0); %Monocytes 7.1 % (0.0-10.0); %Neutrophils 68.9 % (42.0-75.0); Hematocrit 35.7 % (42.0-52.0); Hemoglobin 12.1 g/dL (14.0-18.0); Mean Corpuscular HGB CONC 33.9 g/dL (32.0-36.0); Mean Corpuscular Hemoglobin 30.1 pg (27.0-31.0); Mean Corpuscular Volume 88.8 fl (78.0-98.0); Mean Platelet Volume 11.7 fL (7.4-10.4); Platelet Count 234 10x3/uL (130-400); RBC Distribution Width 13.2 % (11.5-14.5); Red Blood Cell (RBC) Count 4.02 mill/uL (4.70-6.10); White Blood Cell (WBC) Count 8.9 10x3/uL (4.8-10.8)
[2023-06-03 05:23] LABS: Anion Gap 11 mmol/L (10-20); BUN (Urea Nitrogen) 26 mg/dL (8.9-20.6); Calc. Creatinine Clearance 88 mL/min (70-130); Calcium 8.8 mg/dL (7.8-10.44); Carbon Dioxide 27 mmol/L (22-29); Chloride 105 mmol/L (98-107); Estimated GFR 63; Glucose 110 mg/dL (70-105); Potassium 3.5 mmol/L (3.5-5.1); Sodium 139 mmol/L (136-145)
[2023-06-04 05:21] LABS: #Eosinphils 0.1 thou/uL (0.0-0.7); #Monocytes 0.5 thou/uL (0.11-0.59); #Neutrophils 5.5 thou/uL (1.40-6.50); %Basophils 0.3 % (0.0-1.0); %Eosinophils 1.2 % (0.0-10.0); %Lymphocytes 18.5 % (21.0-51.0); %Neutrophils 72.6 % (42.0-75.0); Hematocrit 35.2 % (42.0-52.0); Hemoglobin 12.3 g/dL (14.0-18.0); Mean Corpuscular HGB CONC 34.9 g/dL (32.0-36.0); Mean Corpuscular Hemoglobin 31.3 pg (27.0-31.0); Mean Corpuscular Volume 89.6 fl (78.0-98.0); Mean Platelet Volume 11.9 fL (7.4-10.4); Platelet Count 218 10x3/uL (130-400); RBC Distribution Width 13.1 % (11.5-14.5); Red Blood Cell (RBC) Count 3.93 mill/uL (4.70-6.10); White Blood Cell (WBC) Count 7.6 10x3/uL (4.8-10.8)
[2023-06-04 05:43] LABS: Anion Gap 14 mmol/L (10-20); BUN (Urea Nitrogen) 26 mg/dL (8.9-20.6); Calc. Creatinine Clearance 90 mL/min (70-130); Calcium 8.6 mg/dL (7.8-10.44); Carbon Dioxide 20 mmol/L (22-29); Chloride 106 mmol/L (98-107); Estimated GFR 71; Glucose 106 mg/dL (70-105); Potassium 3.3 mmol/L (3.5-5.1); Sodium 137 mmol/L (136-145)
[2023-06-04] MEDS ORDERED: PHENYLEPHRINE-NS 100 MCG/ML 10 ML SYRINGE ONE ×2 (06:39→06:59)
[2023-06-04] MEDS ORDERED: Albumin 5% 500 ML ONE (06:39)
[2023-06-04] MEDS ORDERED: EPINEPHrine 1 MG/ML VIAL ONE ×2 (06:39→09:10)
[2023-06-04] MEDS ORDERED: Bupivacaine PF 0.5% 30 ML VIAL ONE (06:39)
[2023-06-04] MEDS ORDERED: fentaNYL PF 100 MCG/2 ML SYRINGE ONE (06:53)
[2023-06-04] MEDS ORDERED: PROPOFOL 20 ML ONE (06:53)
[2023-06-04] MEDS ORDERED: SUCCINYLCHOLINE/SOD CL,ISO/PF 200 MG/10 ML SYRINGE FS ONE (06:53)
[2023-06-04] MEDS ORDERED: Vecuronium 10 MG VIAL ONE (06:53)
[2023-06-04] MEDS ORDERED: Midazolam HCl 2 mg/2 ml Vial ONE ×2 (06:54→07:41)
[2023-06-04] MEDS ORDERED: NEOSTIGMINE 3 MG/3 ML SYR 3 MG/3 ML SYRINGE ONE (06:59)
[2023-06-04] MEDS ORDERED: Dexmedetomidine 200 MCG/2 ML VIAL ONE (06:59)
[2023-06-04] MEDS ORDERED: Glycopyrrolate 0.2 MG/ML 5 ML SYRINGE ONE (06:59)
[2023-06-04] MEDS ORDERED: Ondansetron ODT 4 MG TAB ONE (07:12)
[2023-06-04] MEDS ORDERED: Heparin 10,000 UNITS/1 ML VIAL 30,000 UNITS in Sodium Chloride 0.9% 1,000 ML FS SCH (07:15)
[2023-06-04] MEDS ORDERED: Milrinone 10 MG/10 ML VIAL ONE (07:40)
[2023-06-04] MEDS ORDERED: Esmolol 100 MG/10 ML VIAL ONE (07:42)
[2023-06-04] MEDS ORDERED: Sodium Chloride 0.9% 100 ML ONE (07:51)
[2023-06-04] MEDS ORDERED: CEFAZOLIN 2 GM VIAL ONE (07:51)
[2023-06-04] MEDS ORDERED: Heparin 5,000 UNITS/ML VIAL ONE (08:04)
[2023-06-04] MEDS ORDERED: Cardioplegic Soln 1,000 ML BAG ONE (08:04)
[2023-06-04] MEDS ORDERED: Potassium Chloride 60 mEq (30 mL) VIAL ONE (08:04)
[2023-06-04] MEDS ORDERED: Vancomycin 1 GM VIAL ONE (08:04)
[2023-06-04] MEDS ORDERED: Lidocaine 2% PF 100 mg/5 ml Syringe ONE (08:04)
[2023-06-04] MEDS ORDERED: Magnesium 5 GM/10 ML VIAL ONE (08:04)
[2023-06-04] MEDS ORDERED: Aminocaproic Acid 5 GM/20 ML VIAL ONE (08:04)
[2023-06-04] MEDS ORDERED: Papaverine 60 MG/2 ML VIAL ONE (08:04)
[2023-06-04] MEDS ORDERED: Heparin 30,000 units/30 ml VIAL ONE (08:04)
[2023-06-04] MEDS ORDERED: Protamine Sulfate 250 MG/25 ML VIAL ONE (08:04)
[2023-06-04] MEDS ORDERED: Calcium Chloride 1 GM/10 ML Abboject SYRINGE ONE (08:04)
[2023-06-04] MEDS ORDERED: Sodium Bicarb 50 mEq/50 ML VIAL ONE (08:04)
[2023-06-04] MEDS ORDERED: Thrombin 5000 UNITS/5 ML VIAL ONE (08:04)
[2023-06-04] MEDS ORDERED: Heparin 10,000 UNITS/ 10 ML VIAL ONE (09:03)
[2023-06-04] MEDS ORDERED: EPINEPHrine 1 MG/10 ML Abboject SYRINGE ONE (09:08)
[2023-06-04] MEDS ORDERED: Rocuronium Bromide 10 MG/ML (10ML VIAL) ONE (10:57)
[2023-06-04] MEDS: fentaNYL 50 mcg/mL 1 mL Vial ONE ×2 (12:30→13:33)
[2023-06-04 12:36] LABS: Actual Bicarbonate (HCO3a) 17.6 mEq/L (22-28); Base Excess (BEa) -8.3 mEq/L (-2.0 to +3.0); CO2 Tension 37.4 mmHg (35.0-45.0); Calcium, Ionized (arterial) 1.12 mmol/L (1.12-1.30); Carboxyhemoglobin (COHb) 0.7 gm% (0.0-3.0); Hematocrit-ABG 38 % (42.0-52.0); Hemoglobin (Hb) 12.9 g/dL (14.0-18.0); O2 Tension (PaO2), arterial 67.6 mmHg (80.0-100.0); Potassium - ABG Lab 4.17 mmol/L (3.70-5.30)
[2023-06-04 12:43] LABS: Puncture Site Arterial Line
[2023-06-04] MEDS ORDERED: NOREPINEPHRINE 8 MG/250 ML-D5W 250 ML IVPB PRN (12:44)
[2023-06-04] MEDS ORDERED: hydrALAZINE 20 MG/ML VIAL SLOW IVP PRN (12:44)
[2023-06-04] MEDS ORDERED: Ipratropium/Albuterol 3 ML NEB NEB PRN (12:44)
[2023-06-04] MEDS ORDERED: Bisacodyl 10 MG SUPP PR PRN (12:44)
[2023-06-04] MEDS ORDERED: Promethazine HCl 25 MG/ML VIAL IM PRN (12:44)
[2023-06-04] MEDS ORDERED: Guaifenesin DM 100-10/5 ML UDCUP PO PRN (12:44)
[2023-06-04] MEDS ORDERED: Bisacodyl 5 MG TAB PO PRN (12:44)
[2023-06-04] MEDS ORDERED: Albumin 5% 12.5 GM (250 mL) BOT IVPB PRN (12:44)
[2023-06-04] MEDS ORDERED: Ondansetron PF 4 MG/2 ML Vial IVP PRN (12:44)
[2023-06-04] MEDS ORDERED: fentaNYL 50 mcg/mL 1 mL Vial SLOW IVP PRN (12:44)
[2023-06-04] MEDS ORDERED: Potassium Chloride 20 MEQ (100 mL) BAG IVPB PRN (12:44)
[2023-06-04] MEDS ORDERED: Mag-Al 1200 mg/1200 mg/30 ML UDCUP PO PRN (12:44)
[2023-06-04] MEDS ORDERED: Morphine 2 MG/ML VIAL SLOW IVP PRN (12:44)
[2023-06-04] MEDS ORDERED: EPINEPHrine 4 MG in Dextrose 5% in Water 250 ML IV SCH (12:45)
[2023-06-04 12:54] LABS: Hematocrit 35.7 % (42.0-52.0); Hemoglobin 12.2 g/dL (14.0-18.0); Manual Diff?? YES; Mean Corpuscular HGB CONC 34.2 g/dL (32.0-36.0); Mean Corpuscular Volume 90.8 fl (78.0-98.0); Mean Platelet Volume 12.1 fL (7.4-10.4); Platelet Count 270 10x3/uL (130-400); RBC Distribution Width 13.1 % (11.5-14.5); Red Blood Cell (RBC) Count 3.93 mill/uL (4.70-6.10)
[2023-06-04] MEDS: fentaNYL 50 mcg/mL 1 mL Vial SLOW IVP SCH (12:55)
[2023-06-04 12:57] LABS: Delete Auto Diff?? YES; White Blood Cell (WBC) Count 30.5 10x3/uL (4.8-10.8)
[2023-06-04] MEDS: Nitroglycerin 50 MG/250 ML BOT 250 ML ONE (12:57)
[2023-06-04] MEDS ORDERED: Glucagon 1 MG/ML KIT SC PRN (13:00)
[2023-06-04] MEDS ORDERED: Dextrose 50% Abboject 50 ML SYRINGE SLOW IVP PRN (13:00)
[2023-06-04] MEDS ORDERED: Dextrose 5% in Water 1,000 ML IV PRN (13:00)
[2023-06-04 13:07] LABS: INR-International Normal Ratio 1.3; PTT 40.6 sec (22.9-36.1); Prothrombin Time 15.7 sec (12.0-14.7)
[2023-06-04 13:19] LABS: Anion Gap 17 mmol/L (10-20); BUN (Urea Nitrogen) 27 mg/dL (8.9-20.6); Calc. Creatinine Clearance 79 mL/min (70-130); Calcium 7.9 mg/dL (7.8-10.44); Carbon Dioxide 19 mmol/L (22-29); Chloride 106 mmol/L (98-107); Estimated GFR 60; Glucose 164 mg/dL (70-105); Sodium 138 mmol/L (136-145)
[2023-06-04 13:22] LABS: Band 19 % (5-11); CellaVision Operator ID LAB.MJL; Lymphocytes 6 % (21-51); Monocytes 5 % (0-10); Neutrophil 70 % (42-75); Platelet Adequacy Comment Platelets Normal; Polychromasia SLIGHT = 2-3 cells HPF (0-2); Total Cell Count 101
[2023-06-04] MEDS: Post-Op Insulin Drip Protocol IVPB ONE (13:26)
[2023-06-04] MEDS: Sodium Bicarb 50 mEq/50 ML VIAL IVP SCH (13:26)
[2023-06-04] MEDS: Sodium Chloride 0.9% 1,000 ML IV SCH (13:26)
[2023-06-04] MEDS: Sodium Bicarb 50 mEq/50 ML VIAL ONE (13:33)
[2023-06-04] MEDS: Magnesium 2 GM/50 ML(in water) 2 GM in Premix 1 BAG IVPB SCH (14:19)
[2023-06-04] MEDS: Albumin 5% 500 ML ONE (14:23)
[2023-06-04 15:19] LABS: Actual Bicarbonate (HCO3a) 18.5 mEq/L (22-28); Base Excess (BEa) -5.5 mEq/L (-2.0 to +3.0); CO2 Tension 31.4 mmHg (35.0-45.0); Carboxyhemoglobin (COHb) 0.7 gm% (0.0-3.0); Hematocrit-ABG 37 % (42.0-52.0); Hemoglobin (Hb) 12.7 g/dL (14.0-18.0); Potassium - ABG Lab 3.77 mmol/L (3.70-5.30); pH, Arterial 7.387 (7.35-7.45)
[2023-06-04 15:21] LABS: Puncture Site Arterial Line
[2023-06-04] MEDS: CEFAZOLIN 2 GM in Sodium Chloride 0.9% 100 ML IVPB SCH (16:02)
[2023-06-04] MEDS: Albumin 5% 12.5 GM (250 mL) BOT IVPB PRN (16:02)
[2023-06-04] MEDS: Sodium Bicarb 50 mEq/50 ML VIAL IV SCH (16:03)
[2023-06-04] MEDS: Aspirin 325 MG TAB PO SCH (16:33)
[2023-06-04] MEDS: HUMULIN R 100 UNITS in Sodium Chloride 0.9% 100 ML IVPB SCH (17:24)
[2023-06-04 18:13] LABS: Hematocrit 32.3 % (42.0-52.0); Hemoglobin 10.9 g/dL (14.0-18.0)
[2023-06-04] MEDS: oxyCODONE 5 MG TAB PO PRN (18:42)
[2023-06-04 19:07] LABS: Potassium 3.7 mmol/L (3.5-5.1)
[2023-06-04] MEDS: Famotidine/PF 20 mg/2ml Vial SLOW IVP SCH (20:29)
[2023-06-05] MEDS: fentaNYL 50 mcg/mL 1 mL Vial SLOW IVP PRN (02:38)
[2023-06-05 04:07] LABS: #Monocytes 0.9 thou/uL (0.11-0.59); #Neutrophils 11.9 thou/uL (1.40-6.50); %Basophils 0.1 % (0.0-1.0); %Lymphocytes 8.1 % (21.0-51.0); %Monocytes 6.4 % (0.0-10.0); %Neutrophils 85.1 % (42.0-75.0); Hematocrit 30.9 % (42.0-52.0); Hemoglobin 10.6 g/dL (14.0-18.0); Mean Corpuscular HGB CONC 34.3 g/dL (32.0-36.0); Mean Corpuscular Volume 90.4 fl (78.0-98.0); Mean Platelet Volume 11.7 fL (7.4-10.4); Platelet Count 184 10x3/uL (130-400); RBC Distribution Width 13.3 % (11.5-14.5); Red Blood Cell (RBC) Count 3.42 mill/uL (4.70-6.10)
[2023-06-05 04:27] LABS: Anion Gap 17 mmol/L (10-20); BUN (Urea Nitrogen) 21 mg/dL (8.9-20.6); Calc. Creatinine Clearance 89 mL/min (70-130); Calcium 7.9 mg/dL (7.8-10.44); Carbon Dioxide 21 mmol/L (22-29); Chloride 101 mmol/L (98-107); Estimated GFR 70; Glucose 133 mg/dL (70-105); Potassium 3.6 mmol/L (3.5-5.1); Sodium 135 mmol/L (136-145)
[2023-06-05] MEDS: Ketorolac Tromethamine 30 MG (1 mL) VIAL IVP SCH (06:31)
[2023-06-05] MEDS: Insulin Regular 300 UNITS/3 ML VIAL SC PRN (07:46)
[2023-06-05] MEDS: Magnesium 2 GM/50 ML(in water) 2 GM in Premix 1 BAG IVPB SCH (09:11)
[2023-06-05] MEDS: Empagliflozin 10 MG TAB PO SCH (09:12)
[2023-06-05] MEDS: Aspirin 325 MG TAB PO SCH (09:12)
[2023-06-05] MEDS ORDERED: Dextrose 5% in Water 1,000 ML IV PRN (13:56)
[2023-06-05] MEDS: Carvedilol 3.125 MG TAB PO SCH (17:02)
[2023-06-06] MEDS: Furosemide 20 MG TAB PO SCH (08:50)
[2023-06-06] MEDS: HumaLOG 300 UNITS/3 ML VIAL SC PRN ×2 (11:04→21:12)
[2023-06-06 14:24] LABS: #Monocytes 0.9 thou/uL (0.11-0.59); #Neutrophils 8.8 thou/uL (1.40-6.50); %Basophils 0.2 % (0.0-1.0); %Eosinophils 0.4 % (0.0-10.0); %Lymphocytes 12.9 % (21.0-51.0); %Monocytes 7.7 % (0.0-10.0); %Neutrophils 78.4 % (42.0-75.0); Hematocrit 29.2 % (42.0-52.0); Hemoglobin 9.9 g/dL (14.0-18.0); Mean Corpuscular HGB CONC 33.9 g/dL (32.0-36.0); Mean Corpuscular Hemoglobin 30.7 pg (27.0-31.0); Mean Corpuscular Volume 90.4 fl (78.0-98.0); Mean Platelet Volume 12.3 fL (7.4-10.4); Platelet Count 181 10x3/uL (130-400); RBC Distribution Width 13.5 % (11.5-14.5); Red Blood Cell (RBC) Count 3.23 mill/uL (4.70-6.10); White Blood Cell (WBC) Count 11.2 10x3/uL (4.8-10.8)
[2023-06-06 14:47] LABS: Anion Gap 15 mmol/L (10-20); BUN (Urea Nitrogen) 36 mg/dL (8.9-20.6); Calc. Creatinine Clearance 73 mL/min (70-130); Calcium 7.9 mg/dL (7.8-10.44); Carbon Dioxide 20 mmol/L (22-29); Chloride 100 mmol/L (98-107); Estimated GFR 48; Glucose 147 mg/dL (70-105); Potassium 3.2 mmol/L (3.5-5.1); Sodium 132 mmol/L (136-145)
[2023-06-07 06:41] LABS: Anion Gap 14 mmol/L (10-20); BUN (Urea Nitrogen) 41 mg/dL (8.9-20.6); Calc. Creatinine Clearance 77 mL/min (70-130); Calcium 8.4 mg/dL (7.8-10.44); Carbon Dioxide 23 mmol/L (22-29); Chloride 100 mmol/L (98-107); Estimated GFR 52; Glucose 108 mg/dL (70-105); Sodium 134 mmol/L (136-145)
[2023-06-07 07:50] LABS: #Eosinphils 0.1 thou/uL (0.0-0.7); #Monocytes 0.7 thou/uL (0.11-0.59); %Basophils 0.2 % (0.0-1.0); %Eosinophils 0.9 % (0.0-10.0); %Lymphocytes 14.5 % (21.0-51.0); %Monocytes 7.6 % (0.0-10.0); %Neutrophils 76.3 % (42.0-75.0); Hematocrit 28.2 % (42.0-52.0); Hemoglobin 9.7 g/dL (14.0-18.0); Mean Corpuscular HGB CONC 34.4 g/dL (32.0-36.0); Mean Corpuscular Volume 90.1 fl (78.0-98.0); Mean Platelet Volume 12.5 fL (7.4-10.4); Platelet Count 196 10x3/uL (130-400); RBC Distribution Width 13.5 % (11.5-14.5); Red Blood Cell (RBC) Count 3.13 mill/uL (4.70-6.10); White Blood Cell (WBC) Count 9.1 10x3/uL (4.8-10.8)
[2023-06-07] MEDS: Potassium Chloride 20 MEQ TAB PO SCH ×2 (08:37→12:41)
[2023-06-07 08:44] VITALS: TEMP 96.4
[2023-06-07 11:26] LABS: Potassium 3.4 mmol/L (3.5-5.1)
[2023-06-07 12:39] VITALS: BP 116/80
== END 2023-06-07 13:24 | disposition home or self-care (01) | DRG 233 ==
LOC: ERS 23:11 → 2NO 06-01 02:04 → OBSVTOIN 06-01 08:10 → CCU 06-04 07:05 → 2NO 06-05 21:15
PROVIDERS: ADMIT Internal Medicine; ATTEND Family Medicine
PROC: 4A023N7 Measurement of Cardiac Sampling and Pressure, Left Heart, Percutaneous Approach (ICD-10-PCS; principal; 2023-06-02)
PROC: B2111ZZ Fluoroscopy of Multiple Coronary Arteries using Low Osmolar Contrast (ICD-10-PCS; 2023-06-02)
PROC: B2151ZZ Fluoroscopy of Left Heart using Low Osmolar Contrast (ICD-10-PCS; 2023-06-02)
PROC: 02100Z9 Bypass Coronary Artery, One Artery from Left Internal Mammary, Open Approach (ICD-10-PCS; 2023-06-04)
PROC: 021109W Bypass Coronary Artery, Two Arteries from Aorta with Autologous Venous Tissue, Open Approach (ICD-10-PCS; 2023-06-04)
PROC: 06BQ4ZZ Excision of Left Saphenous Vein, Percutaneous Endoscopic Approach (ICD-10-PCS; 2023-06-04)
PROC: 5A1221Z Performance of Cardiac Output, Continuous (ICD-10-PCS; 2023-06-04)
PROC: 02L70CK Occlusion of Left Atrial Appendage with Extraluminal Device, Open Approach (ICD-10-PCS; 2023-06-04)
PROC: 4A133R1 Monitoring of Arterial Saturation, Peripheral, Percutaneous Approach (ICD-10-PCS; 2023-06-04)
PROC: 3E033XZ Introduction of Vasopressor into Peripheral Vein, Percutaneous Approach (ICD-10-PCS; 2023-06-04)
PROC: 30233J1 Transfusion of Nonautologous Serum Albumin into Peripheral Vein, Percutaneous Approach (ICD-10-PCS; 2023-06-04)
DX: I21.4 Non-ST elevation (NSTEMI) myocardial infarction (principal); I50.23 Acute on chronic systolic (congestive) heart failure; I13.0 Hypertensive heart and chronic kidney disease with heart failure and stage 1 through stage 4 chronic kidney disease, or unspecified chronic kidney disease; N17.9 Acute kidney failure, unspecified; E11.65 Type 2 diabetes mellitus with hyperglycemia; E78.5 Hyperlipidemia, unspecified; I25.10 Atherosclerotic heart disease of native coronary artery without angina pectoris; E11.22 Type 2 diabetes mellitus with diabetic chronic kidney disease; N18.9 Chronic kidney disease, unspecified; Z79.899 Other long term (current) drug therapy; I25.2 Old myocardial infarction; M10.9 Gout, unspecified; Z82.49 Family history of ischemic heart disease and other diseases of the circulatory system; Z83.3 Family history of diabetes mellitus; Z87.891 Personal history of nicotine dependence; Z79.4 Long term (current) use of insulin; Z11.52 Encounter for screening for COVID-19
CPT/HCPCS: 36415; 36416; 36430; 71045; 80048; 80053; 80061; 80306; 82805; 83036; 83735; 83880; 84439; 84443; 84484; 85025; 85347; 85610; 85730; 86850; 86900; 86901; 87081; 87430; 93005; 93010; 93306; 93458; 93459; 93798; 94002; 96361; 96372; 96374; 96375; 99152; A4311; C1751; C1769; G0378; J0171; J0665; J1642; J1644; J1650; J1815; J1885; J1940; J2001; J2250; J2260; J2270; J2405; J2440; J2704; J2720; J3010; J3370; J3475; J3480; J3490; J7050; J7512; P9045; Q0162; Q9967; S0017; S0028

== ENCOUNTER 2023-06-12 08:53 | Observation (INO) | payer OTHER, SELFPAY ==
[2023-06-12 09:19] LABS: #Eosinphils 0.2 thou/uL (0.0-0.7); #Monocytes 0.7 thou/uL (0.11-0.59); #Neutrophils 7.1 thou/uL (1.40-6.50); %Basophils 0.3 % (0.0-1.0); %Eosinophils 1.7 % (0.0-10.0); %Lymphocytes 17.2 % (21.0-51.0); %Monocytes 6.9 % (0.0-10.0); %Neutrophils 73.5 % (42.0-75.0); Hematocrit 33.5 % (42.0-52.0); Hemoglobin 11.2 g/dL (14.0-18.0); Mean Corpuscular HGB CONC 33.4 g/dL (32.0-36.0); Mean Corpuscular Hemoglobin 30.6 pg (27.0-31.0); Mean Corpuscular Volume 91.5 fl (78.0-98.0); Mean Platelet Volume 10.7 fL (7.4-10.4); Platelet Count 330 10x3/uL (130-400); RBC Distribution Width 13.5 % (11.5-14.5); Red Blood Cell (RBC) Count 3.66 mill/uL (4.70-6.10); White Blood Cell (WBC) Count 9.7 10x3/uL (4.8-10.8)
[2023-06-12 09:38] LABS: INR-International Normal Ratio 1.1; Prothrombin Time 14.4 sec (12.0-14.7)
[2023-06-12 09:39] LABS: PTT 48.6 sec (22.9-36.1)
[2023-06-12 09:55] LABS: ALT (SGPT) 39 U/L (8-55); AST (SGOT) 30 U/L (5-34); Albumin 3.9 g/dL (3.5-5.0); Alkaline Phosphatase 138 U/L (40-110); Anion Gap 16 mmol/L (10-20); BUN (Urea Nitrogen) 19 mg/dL (8.9-20.6); Bilirubin, Total 1.3 mg/dL (0.2-1.2); Calc. Creatinine Clearance 0 mL/min (70-130); Calcium 9.4 mg/dL (7.8-10.44); Carbon Dioxide 22 mmol/L (22-29); Chloride 103 mmol/L (98-107); Estimated GFR 59; Globulin 3.4 g/dL (2.4-3.5); Glucose 108 mg/dL (70-105); Potassium 4.5 mmol/L (3.5-5.1); Protein, Total 7.3 g/dL (6.0-8.3); Sodium 136 mmol/L (136-145)
[2023-06-12 09:58] LABS: Critical Call Chem Troponin I NUR.MKL@0957; Troponin I 0.852 ng/mL (< 0.028)
[2023-06-12] MEDS ORDERED: Amiodarone 200 MG TAB ONE (12:09)
[2023-06-12] MEDS ORDERED: Acetaminophen 325 MG TAB PO PRN (12:54)
[2023-06-12] MEDS ORDERED: oxyCODONE 5 MG TAB PO PRN (12:55)
[2023-06-12 13:06] LABS: Critical Call Chem Troponin I RESULT DECREASING; Troponin I 0.802 ng/mL (< 0.028)
[2023-06-12 14:21] VITALS: BMI 33.8
[2023-06-12] MEDS ORDERED: Iopamidol-370 76% 500 ML MDV (1 ML CHARGE) ONE (14:53)
[2023-06-12 15:46] LABS: Critical Call Chem Troponin I NUR.SO10 AT 1546; Troponin I 0.817 ng/mL (< 0.028)
[2023-06-12] MEDS: Carvedilol 3.125 MG TAB PO SCH (16:36)
[2023-06-12] MEDS: Atorvastatin Calcium 40 MG TAB PO SCH (21:13)
[2023-06-12] MEDS: Amiodarone 200 MG TAB PO SCH (21:14)
[2023-06-13 08:16] VITALS: TEMP 98.6
[2023-06-13] MEDS: Empagliflozin 10 MG TAB PO SCH (08:47)
[2023-06-13] MEDS: Aspirin 325 MG TAB PO SCH (08:47)
[2023-06-13] MEDS: Enoxaparin 40 MG (0.4 mL) SYRINGE SC SCH (08:47)
[2023-06-13 12:27] VITALS: BP 100/65
== END 2023-06-13 17:28 | disposition home or self-care (01) ==
LOC: ERS 08:53 → 2SW 12:10
PROVIDERS: ADMIT Internal Medicine; ATTEND Internal Medicine
DX: I48.92 Unspecified atrial flutter (principal); I25.10 Atherosclerotic heart disease of native coronary artery without angina pectoris; I10 Essential (primary) hypertension; E78.5 Hyperlipidemia, unspecified; I25.2 Old myocardial infarction; E11.9 Type 2 diabetes mellitus without complications; M10.9 Gout, unspecified; Z95.5 Presence of coronary angioplasty implant and graft; Z87.891 Personal history of nicotine dependence; Z79.82 Long term (current) use of aspirin; Z79.899 Other long term (current) drug therapy
CPT/HCPCS: 36415; 71045; 71275; 80053; 83880; 84484; 85025; 85379; 85610; 85730; 93005; 96372; G0378; J1650; Q9967